=== PATIENT | female | born 1960 | race Caucasian/White ===

== ENCOUNTER 2017-12-27 14:19 | Inpatient (IN) | payer BC, OTHER ==
[~2017-12-27 14:19] MED LIST: ISOVUE-370 76%-LOCM 1 ML ONE
[2017-12-27 14:33] LABS: #Basophils 0.1 thou/uL (0.0-0.2); #Eosinphils 0.1 thou/uL (0.0-0.7); #Lymphocytes 2.1 thou/uL (1.20-3.40); #Monocytes 0.4 thou/uL (0.11-0.59); #Neutrophils 6.8 thou/uL (1.40-6.50); %Basophils 1.1 % (0.0-1.0); %Eosinophils 0.8 % (0.0-10.0); %Lymphocytes 21.9 % (21.0-51.0); %Neutrophils 72.1 % (42.0-75.0); Hemoglobin 14.5 g/dL (12.0-16.0); Mean Corpuscular HGB CONC 35.6 g/dL (32.0-36.0); Mean Corpuscular Hemoglobin 32.9 pg (27.0-31.0); Mean Corpuscular Volume 92.4 fL (78.0-98.0); Mean Platelet Volume 7.6 fL (7.4-10.4); Platelet Count 207 thou/uL (130-400); RBC Distribution Width 11.3 % (11.5-14.5); Red Blood Cell (RBC) Count 4.41 mill/uL (4.20-5.40); White Blood Cell (WBC) Count 9.5 thou/uL (4.8-10.8)
[2017-12-27 14:39] LABS: PTT 27.3 SEC (22.9-36.1); Prothrombin Time 12.9 SEC (12.0-14.7)
[2017-12-27 14:47] LABS: ALT (SGPT) 14 U/L (8-55); AST (SGOT) 16 U/L (5-34); Albumin 4.2 g/dL (3.5-5.0); Alkaline Phosphatase 83 U/L (40-150); Anion Gap 14 mmol/L (10-20); BUN (Urea Nitrogen) 10 mg/dL (9.8-20.1); Bilirubin, Total 0.5 mg/dL (0.2-1.2); Calc. Creatinine Clearance 0 mL/min (70-130); Calcium 9.7 mg/dL (7.8-10.44); Carbon Dioxide 22 mmol/L (22-29); Chloride 106 mmol/L (98-107); Estimated GFR-MDRD 79; Glucose 104 mg/dL (70-105); Potassium 4.1 mmol/L (3.5-5.1); Protein, Total 7.2 g/dL (6.0-8.3); Sodium 138 mmol/L (136-145)
[2017-12-27 14:52] LABS: CKMB 1.4 ng/mL (0-6.6); Troponin I 0.015 ng/mL (< 0.028)
--- NOTE | 2017-12-27 14:59 | CT ---
NONCONTRAST HEAD CT: Date: 12/27/17 HISTORY: Slurred speech with weakness. Status post fall. Last known time of normal presentation is unknown. FINDINGS: Limited evaluation of the skull base due to beam attenuation artifact. No parenchymal hemorrhage or e xtra-axial hematoma. No midline shift. Basilar cisterns are patent. Brain volume is age-appropriate. Cortical buck-white matter differentiation is preserved. Ventricles and sulci are patent and symmetri c. Hypoattenuation involving the right subinsular white matter may represent a remote insult given what appears to be slight volume loss. Calvarium is intact. There is adequate aeration of the sinuses and mastoid air cells. There is a remote lacunar infarct along the inferior aspect of the left lentiform nucleus. IMPRESSION: No acute intracranial process. No intracranial post-traumatic sequelae. Results of study discussed with Dr. Paniagua on 12/27/17 at 1427 hours. CODE CR. POS: [facility]
--- NOTE | 2017-12-27 15:36 | PDOC.FPRHP ---
- History of Present Illness Chief Complaint: Right sided weakness, slurred speech History of Present Illness: 57 yo F with pmh of paroxysmal a-fib, only on aspirin for management presents with acute onset rt sided vision deficit followed by left sided vision deficit and headache. This occurred at 930am this morning and pt suffered a fall when symptoms started. Pt & family reported she was acting funny and had incoherent speech followed by right sided weakness. She additionally reports pleurtic chest pain, cough and worsening of headache with coughing. CP is substernal with radiation to the left. Reports left hip pain, but is able to bear weight. Otherwise no complaints. ED Course: Aspirin - Allergies/Adverse Reactions Allergies Allergy/AdvReac Type Severity Reaction Status Date / Time Penicillins Allergy Verified 12/27/17 21:40 - History PMHx:paroxysmal a fib PSHx: hysterectomy FHx: NA Social:1ppd smoker by 20 years, social drinker, denies drugs - Review of Systems General: denies: fever/chills, weight/appetite/sleep changes Eyes: reports: vision changes. denies: eye pain Respiratory: reports: cough, shortness of breath. denies: congestion, exercise intolerance Cardiovascular: reports: chest pain. denies: palpitation, edema, orthopnea Gastrointestinal: denies: nausea, vomiting, diarrhea, constipation, abdominal pain Genitourinary: denies: incontinence, dysuria, polyuria Skin: denies: rashes, lesions Musculoskeletal: reports: pain, tenderness (left hip). denies: swelling Neurological: reports: weakness. denies: numbness, syncope Psychological: denies: anxiety, depression - Vital signs BP: 158 HR: 76 RR: 18 Tmax: 98.6 Pox: 99% on RA - Physical Exam Constitutional: NAD, awake, alert and oriented HEENT: normocephalic and atraumatic, PERRLA, EOMI, conjunctiva clear, no scleral icterus, grossly normal vision, TM's clear and intact, grossly normal hearing, MMM, oropharynx clear -Neck: C-collar in place -Chest: Mildly TTP midsternal Heart: RRR, normal S1/S2, no murmurs/rubs/gallops, pulses present, no edema Lungs: CTAB, no respiratory distress Abdomen: soft, bowel sounds present -Abdomen: Mildly ttp suprapubic -Neurological: Deficit of rt CN XI, Rt trigeminal v3 branch sensory deficit, RUE 3/5 strength throughout, RLE 2-3/5 strength throughout FMR H&P: Results - Labs Result Diagrams: 12/29/17 04:06 12/29/17 04:06 Lab results: WBC 9.5 thou/uL (4.8-10.8) 12/27/17 14:25 Hgb 14.5 g/dL (12.0-16.0) 12/27/17 14:25 Hct 40.7 % (36.0-47.0) 12/27/17 14:25 MCV 92.4 fL (78.0-98.0) 12/27/17 14:25 Plt Count 207 thou/uL (130-400) 12/27/17 14:25 Neutrophils % 72.1 % (42.0-75.0) 12/27/17 14:25 Sodium 138 mmol/L (136-145) 12/27/17 14:25 Potassium 4.1 mmol/L (3.5-5.1) 12/27/17 14:25 Chloride 106 mmol/L (98-107) 12/27/17 14:25 Carbon Dioxide 22 mmol/L (22-29) 12/27/17 14:25 BUN 10 mg/dL (9.8-20.1) 12/27/17 14:25 Creatinine 0.76 mg/dL (0.6-1.1) 12/27/17 14:25 Glucose 104 mg/dL (70-105) 12/27/17 14:25 Calcium 9.7 mg/dL (7.8-10.44) 12/27/17 14:25 Total Bilirubin 0.5 mg/dL (0.2-1.2) 12/27/17 14:25 AST 16 U/L (5-34) 12/27/17 14:25 ALT 14 U/L (8-55) 12/27/17 14:25 Alkaline Phosphatase 83 U/L (40-150) 12/27/17 14:25 CK-MB (CK-2) 1.4 ng/mL (0-6.6) 12/27/17 14:25 Serum Total Protein 7.2 g/dL (6.0-8.3) 12/27/17 14:25 Albumin 4.2 g/dL (3.5-5.0) 12/27/17 14:25 - Radiology Interpretation CT scan - head Status: report reviewed by me (NAD CTA head showed possible aneurysm of left ICA vs infundibulum, non-emergent f/u recommended) FMR H&P: A/P - Problem List (1) CVA (cerebral vascular accident) Status: Ruled-out Code(s): I63.9 - CEREBRAL INFARCTION, UNSPECIFIED (2) Tobacco abuse Status: Acute Code(s): Z72.0 - TOBACCO USE (3) Paroxysmal A-fib Status: Acute Code(s): I48.0 - PAROXYSMAL ATRIAL FIBRILLATION (4) Right sided weakness Status: Acute Code(s): R53.1 - WEAKNESS - Plan TIA VS CVA vs complex migraine - Admit stroke/tele, neuro checks q4hrs - h/o paroxysmal a-fib possibility of embolic disease - CTA: Infundibulum vs aneurysm involving distal L internal carotid, 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 Nonemergent conventional angiogram can be performed. No evidence of vascular occlusion at level of [place] - Neuro checks q4hr - ASA given in ED - Anticoagulation w/in 24 hours - High intensity statin, AM FLP - Consulted PT/OT/speech - Allow for permissive HTN to protect penumbra - PRN meds for BP >220/110 - AM echo - Consult neuro - NS@100 - 50 Benadryl w/ reglan for migraine therapy Chest pain, atypical - Trend troponins, neg x2 - Protonix for epigastric pain Paroxysmal a-fib - Once hemorrhagic stroke r/o will anticoagulate - Rate control as indicated Tobacco abuse - Web Development Instructor on cessation PPX: lovenox and protonix for DVT and GI ppx respectively Code status: FULL PCP [facility] Disposition/LOS: Stable, >/= 2 days FMR H&P: Upper Level - Pertinent history 57 yo F w/ PMH of paroxysmal a-fib, only on aspirin for managment presents with acute onset rt sided vision deficit followed byt left sided vision deficit and headache. This originally occurred at approx 930 am this morning and pt suffered a fall when symptoms started. Per pt and pts son her reported that she was acting funny and had incoherent speech followed by rt sided weakness. She additionally reports cp, pleuritic type cp, cough and worsening of headahce with coughing. CP is substernal with radiation to the left. Reports left hip pain, but is able to bear weight. Otherwise no complaints. ROS: 10 point ROS negative except for those listed above. - Pertinent findings PE: Head: NCAT NECK: C-collar in place EENT: PERRLA, EOMI, no uvular deviation, MMM, oropharynx clear Chest: Mildly TTP midsternal CV: RRR, No MRG Respiratory: CTA-b/l Abdomen: Mildly ttp suprapubic, no rebound or guarding NEURO: Deficit of rt CN XI, Rt trigeminal v3 branch sensory deficit, RUE 3/5 strength throughout, RLE 2-3/5 strength throughout - Plan Date/Time: 12/27/17 2437 I, Vitaly Townsend DO, have evaluated this patient and agree with findings/ plan as outlined by clinical nursing intern resident. Pertinent changes/additions are listed here. 1) TIA VS CVA vs complex migraine: - admit stroke/tele, neuro checks q4hrs - given h/o paroxysmal a-fib possibility of embolic disease, CTA pending - neuro checks q4hr - ASA given in ED - will need anticoagulation w/in 24 hours - high intensity statin, am FLP - consult pt, ot , speech - will allow for permissive htn to protect penumbra - PRN meds for BP >220/110 - AM echo - consult neuro - NS @ 100, 50 benadryl w/ reglan for migraine therapy 2) Paroxysmal a-fib - once hemorrhagic stroke r/o will anticoagulate - rate control as indicated 3) Tobacco abuse: - rehabilitation services counselor on cessation 4) PPX: lovenox and protonix for DVT and GI ppx respectively 5) Code status: - Pt wishes to be full code 6) Chest pain, atypical: trend troponins, protonix for epigastric pain Attending Addendum - Attending Addendum Date/Time: 12/27/17 [id number] I personally evaluated the patient and discussed the management with Dr. Scott and Dr. Townsend I agree with the History, Examination, Assessment and Plan documented above with any addition or exceptions noted below. 57 yo female with p A fib presents with headache, vision changes, and speech difficulty. Patient currently with resolution of symptoms except for headache and mild blurry vision. CT Head negative for acute. NSR on telemetry and EKG. ASA provided. Will admit for monitoring. Serial exams. MRI in AM. Will treat headache. Suspicion for complex migraine with aura. Patient reports a remote past history of migraines. Possible carotid aneurym. Will discuss workup with vascular. [place]
[2017-12-27] MEDS ORDERED: Aspirin 300 MG Suppository ONE (15:39)
--- NOTE | 2017-12-27 15:56 | RAD ---
CHEST TWO VIEWS: History: Dyspnea. Comparison: 02-06-14 FINDINGS: Cardiac silhouette is magnified by projection. Pulmonary vasculature is unremarkable. Mediastinum is midline. Retrocardiac densities likely related to a hiatal hernia. No lobar consolidation or evidence of pneumothorax. personnel monitor leads overlie the chest. IMPRESSION: No active cardiopulmonary abnormalities are demonstrated. POS: [facility]
--- NOTE | 2017-12-27 16:03 | CT ---
CT ANGIOGRAM OF THE HEAD CT ANGIOGRAM OF THE NECK 12/27/17 HISTORY: Slurred speech. Weakness. Status post fall. COMPARISON: None. TECHNIQUE: CT angiogram of the neck is performed in the axial plane. Two dimensional reformatted images are subm itted for interpretation. FINDINGS: POSTCONTRAST HEAD CT: Adequate enhancement of the brain parenchyma. Cortical buck-white matter differentiation is preserved . There is symmetric attenuation of the optic nerves and ocular rectus muscles. Retrobulbar fat is pres erved. Appropriate positioning in both ocular lenses. Adequate aeration of the sinuses and mastoid ai r cells. Aerodigestive tract is patent. No mucosal abnormality. No obvious masses in the oral cavity. Evaluati on is markedly limited by dental amalgam artifact. Midline fatty raphae of the tongue is preserved. L imited evaluation of the submandibular glands and parotid glands due to beam attenuation artifact fro m the patient's earrings. Grossly, no abnormality. Thyroid gland is unremarkable. Symmetric attenuation of the sternocleidomastoid muscles. Nonspecific enlargement of the left level II lymph node measuring 1.4 x 1.0 cm. There is effacement of the left piriform sinus. The findings may represent benign apposition of the m [place]. Nonemergent visualization can be performed. There are varying degrees of central canal stenosis and foraminal narrowing on the basis of degenerat antoinette change. Upper mediastinum and lung apices are unremarkable. CT ANGIOGRAM: The aortic arch has appropriate enhancement and luminal diameter. RIGHT CAROTID: The origin of the right carotid artery has appropriate enhancement and luminal diameter. The right co mmon carotid artery, carotid bifurcation, and internal carotid artery have appropriate enhancement an d luminal diameter. LEFT CAROTID: The origin of the left carotid artery has appropriate enhancement and luminal diameter. The left comm on carotid artery, carotid bifurcation, and internal carotid artery have appropriate enhancement and luminal diameter. Both vertebral arteries are patent throughout their course in the neck. Subclavian arteries are symme tric and patent. CT ANGIOGRAM OF THE HEAD: The distal cervical and intracranial internal carotid arteries have appropriate enhancement and lumin al diameter. There is a focal 2 to 3 mm area of enhancement along the distal aspect of the left inter nal carotid artery which may represent a PCOM artery aneurysm versus infundibulum. Evaluation is limi krishna and incomplete. There is symmetric enhancement of the A1 and M1 segments as well as the proximal A2 segments and proximal MCA branches. POSTERIOR CIRCULATION: Codominant vertebral arteries. Both PICA artery origins are unremarkable. Both vertebral arteries sup ply a normal appearing basilar artery. No significant stenosis. The left and right P1 segments have s ymmetric enhancement and luminal diameter. IMPRESSION: 1. No evidence to suggest vascular occlusion or high grade narrowing at the level of [place]. 2. No evidence of significant stenosis of the carotid arteries based upon NASCET criteria. 3. Probable infundibulum versus aneurysm involving the distal left internal carotid artery which may represent a PCOM aneurysm or infundibulum. Nonemergent conventional angiogram can be performed. 4. Results of the study discussed with Dr. Paniagua 12/27/17 at 2:49 p.m. Marialuisa MARSHALL POS: [facility]
--- NOTE | 2017-12-27 16:56 | CT ---
CT CERVICAL SPINE: Date: 12/27/17 HISTORY: Status post fall. Evaluate for cervical spine injury. COMPARISON: None. TECHNIQUE: CT of the cervical spine is performed after CT angiogram of head and neck performed. Reformatted imag es are submitted for interpretation. FINDINGS: There is no craniocervical dissociation. Lateral masses of C1 and C2, as well as the facets, have smiley ropriate articulation. There is mild hypertrophy of the posterior elements. No spondylolisthesis or s pondylolysis. No malalignment on the sagittal reformatted images. There is no prevertebral soft tissue swelling. No epidural hematoma. Varying degrees of central canal stenosis and foraminal narrowing on the basis of degenerative change . Cervical spine vertebral body height is maintained. There is no fracture. IMPRESSION: No cervical spine fracture. POS: [facility]
[2017-12-27] MEDS ORDERED: Ondansetron HCl/PF 4 MG/2 ML Vial IVP PRN (17:50)
[2017-12-27] MEDS ORDERED: Ondansetron ODT 4 MG TAB SL PRN (17:50)
[2017-12-27 18:00] VITALS: BMI 23.9
[2017-12-27] MEDS ORDERED: diphenhydrAMINE 50 MG/ML VIAL IVP SCH (18:02)
[2017-12-27] MEDS ORDERED: Metoclopramide HCl 10 MG/2 ML VIAL IVP SCH (18:02)
[2017-12-27] MEDS ORDERED: Ondansetron ODT 4 MG TAB PO PRN (18:02)
[2017-12-27] MEDS ORDERED: Ketorolac Tromethamine 30 MG/ML VIAL IVP SCH (18:02)
[2017-12-27 19:04] LABS: Troponin I 0.011 ng/mL (< 0.028)
[2017-12-27] MEDS: Sodium Chloride 0.9% 1,000 ML IV SCH (20:15)
[2017-12-27] MEDS: Pantoprazole 40 MG VIAL IVP SCH (20:44)
[2017-12-27 21:29] LABS: Troponin I 0.013 ng/mL (< 0.028)
[2017-12-28] MEDS ORDERED: Acetaminophen 500 MG TAB PO SCH (01:00)
[2017-12-28] MEDS ORDERED: Nitroglycerin 0.4 MG TAB (25 Tab Bottle) ONE (03:02)
[2017-12-28 03:36] LABS: #Eosinphils 0.1 thou/uL (0.0-0.7); #Lymphocytes 3.2 thou/uL (1.20-3.40); #Monocytes 0.4 thou/uL (0.11-0.59); #Neutrophils 4.5 thou/uL (1.40-6.50); %Basophils 0.6 % (0.0-1.0); %Eosinophils 1.6 % (0.0-10.0); %Lymphocytes 38.4 % (21.0-51.0); %Monocytes 4.6 % (0.0-10.0); %Neutrophils 54.9 % (42.0-75.0); Hemoglobin 12.8 g/dL (12.0-16.0); Mean Corpuscular HGB CONC 34.8 g/dL (32.0-36.0); Mean Corpuscular Hemoglobin 32.6 pg (27.0-31.0); Mean Corpuscular Volume 93.6 fL (78.0-98.0); Mean Platelet Volume 7.5 fL (7.4-10.4); Platelet Count 180 thou/uL (130-400); RBC Distribution Width 11.5 % (11.5-14.5); Red Blood Cell (RBC) Count 3.94 mill/uL (4.20-5.40); White Blood Cell (WBC) Count 8.2 thou/uL (4.8-10.8)
--- NOTE | 2017-12-28 03:55 | HP-2 ---
DATE OF SERVICE: 12/27/2017 TIME: 15:30 p.m. LOCATION: [facility] in [place], [place]. CODE STATUS: FULL. PRIMARY CARE PHYSICIAN: Dr. Mandujano. ATTENDING PHYSICIAN: Dr. Lyndsey Haile. RESIDENT PHYSICIAN: Dr. Vitaly Townsend. HISTORIAN: Patient. SPECIALIST: Neurology. CHIEF COMPLAINT: Right-sided weakness, slurred speech, temporary loss of vision and headache. HISTORY OF PRESENT ILLNESS: Patient is a 57-year-old female with a history of paroxysmal atrial fibr illation that she only takes aspirin for. She initially presented to the ED with a chief complaint o f right-sided weakness, temporary right eye blindness, which subsequently migrated to the left and th is was followed by severe bitemporal headache. The patient also reports a distant history of similar , but less severe symptoms on Tuesday. Prior to arrival, the patient states that she fell after early onset of symptoms. Additionally, she reports some substernal chest pain with radiation to the left arm as well as pleuritic-type chest pain and occasional dry cough. Otherwise, she currently denies v ision loss. She does not endorse a persistent right-sided weakness, who reports that her rep orted slurred speech and altered faces. Otherwise, she has no other complaints. In the ER, the patient was given aspirin and a CT of the head was done, which showed no acute disease . Subsequently, a CT angiogram of the head was performed, which showed a possible left internal vivas tid aneurysm versus infundibulum. Recommended nonemergent CT angiogram for further evaluation. Negra ent reported vision loss of the right eye followed by the left eye and subsequent severe headache aft er these symptoms occur. PAST MEDICAL HISTORY: Paroxysmal atrial fibrillation. PAST SURGICAL HISTORY: Hysterectomy. ALLERGIES: PENICILLIN. MEDICATION: Aspirin 81 mg per day. FAMILY HISTORY: Unknown. SOCIAL HISTORY: Tobacco: The patient is a half-pack per day smoker for approximately 30 years. Soc ial drinker. Denies drug use. REVIEW OF SYSTEMS: General: The patient denies fever or chills. No night sweats or fatigue. Eyes: The patient reports changes in vision. Denies eye pain. ENT: The patient denies nasal congestio n, rhinorrhea, or sore throat. Respiratory: The patient complains of cough and pain with deep inspi ration. Otherwise, denies shortness of breath or exercise intolerance. Cardiovascular: The patient reports chest pain in substernal with radiation to the left. Denies palpitations, edema, paroxysmal nocturnal dyspnea, or orthopnea. Gastrointestinal: Denies nausea, vomiting, diarrhea, constipation , abdominal pain, or GI bleeding. Genitourinary: Denies incontinence, dysuria, polyuria, or dischar ge. Skin: Denies rashes or lesions. Musculoskeletal: Denies pain, tenderness, stiffness, or swell ing. Neurologic: The patient reports weakness on the right upper extremity and right lower extremit y. Denies numbness. Denies syncope and denies seizure. Psychiatric: The patient denies any acute stressors at home and currently denies any symptoms of anxiety or depression. PHYSICAL EXAMINATION: VITAL SIGNS: Blood pressure 141/72, pulse 81, respiratory rate 18. T-max 98.69, pulse ox 97% on gracia m air, current weight 70 kilograms. GENERAL: The patient is alert and oriented x3, mildly distress, well-developed and appropriately int eractive. EYES: Pupils are equal, round, reactive to light with accommodation. Extraocular muscles are intact . Conjunctivae are within normal limits. ENT: Nasal mucosa is within normal limits. Oropharynx within normal limits. NECK: Patient has C-collar in place at time of exam. CARDIOVASCULAR: Regular rate and rhythm. No murmurs, rubs, or gallops. Radial pulses 2+. Pedal pu lse 2+. RESPIRATORY: Normal effort. No retractions. LUNGS: Clear to auscultation bilaterally. SKIN: Warm and dry. No cyanosis or lesions. ABDOMEN: Soft, nontender. Normoactive bowel sounds in all 4 quadrants. No masses, distention, or o rganomegaly. No CVA tenderness. EXTREMITIES: No clubbing, cyanosis, or edema. MUSCULOSKELETAL: Structure is within normal limits. Tone within normal limits. NEUROLOGIC: There is a right-sided deficit of the V3 branch of the trigeminal nerve on the right maximiliano e, in addition to right cranial nerve 11 deficit. Additionally, the patient's upper extremity streng th on the right side is approximately 3/5 and lower extremity strength is approximately 2-3/5 on the right. Current GCS is 15. Deep tendon reflexes are within normal limits on the lower extremity. PSYCHIATRIC: The patient is tearful and upset. LABORATORY DATA: BNP and CBC are within normal limits. Urinalysis was within normal limits. EKG sh owed normal sinus rhythm with a rate of 81. IMAGIN. A noncontrast CT of the head showed no acute disease. 2. CT angiogram of the head showed a left internal carotid aneurysm versus infundibulum, nonemergent , repeat MR angiogram of the head was recommended for further evaluation. ASSESSMENT AND PLAN: 1. Transient ischemic attack versus cerebrovascular accident versus complex migraine. We will admit inpatient stroke. Stroke team to be consulted. Neurology consult in a.m. 2. We will obtain echocardiogram in a.m., in addition to fasting lipid panel. The patient will be s tarted on Lovenox as well as aspirin for antiplatelet and antithrombin therapy. Given the patient's current headache and presenting symptoms, a complex migraine cannot be ruled out. We will treat for the possibility of migraine with Toradol in addition to IV fluids and normal saline 100 mL per hour a nd Benadryl and Reglan. 3. Neurology consulted, appreciate recommendations. 4. Paroxysmal atrial fibrillation. We will order echocardiogram for the a.m. The patient is to be anticoagulated with Lovenox. A CT noncontrast was negative for acute hemorrhagic stroke. 5. We will likely need long-term anticoagulation if the source of this weakness is in fact embolic d isease. 6. Tobacco abuse, counseled on cessation. 7. Prophylaxis. Lovenox and Protonix for deep vein thrombosis and gastrointestinal prophylaxis resp ectively. CODE STATUS: The patient wishes to be FULL CODE, it was discussed with patient at bedside. THIS IS A DICTATED H&P, WHICH WILL BE TEMPORARY [employer] ACCESS IS CURRENTLY DOWN FOR THE FULL LIS T OF LABORATORY RESULTS, EKG AND CHEST IMAGING FINDINGS WELL A MORE DETAILED ASSESSMENT AND ADDI N, PLEASE SEE THE ELECTRONIC H&P WHICH WILL BE COMPLETED FOLLOWING ABILITY TO GET ACCESS TO [employer].
[2017-12-28 03:59] LABS: Anion Gap 12 mmol/L (10-20); BUN (Urea Nitrogen) 12 mg/dL (9.8-20.1); Calc. Creatinine Clearance 91 mL/min (70-130); Calcium 8.7 mg/dL (7.8-10.44); Carbon Dioxide 21 mmol/L (22-29); Cardiac Risk 2.6 (Less than 4.5); Chloride 110 mmol/L (98-107); Cholesterol 155 mg/dl (< 200 Desired); Estimated GFR-MDRD 81; Glucose 90 mg/dL (70-105); HDL Cholesterol 60 mg/dL (>60 Neg Risk); LDL Cholesterol, Calculated 79 mg/dL; Potassium 4.1 mmol/L (3.5-5.1); Sodium 139 mmol/L (136-145); Triglycerides 80 mg/dL (Less than 150)
[2017-12-28 04:03] LABS: Troponin I Less than 0.010 ng/mL (< 0.028)
--- NOTE | 2017-12-28 05:07 | PDOC.FM ---
- Subjective Subjective: 57 yo F with pmh of paroxysmal a-fib, only on aspirin for management presents with acute onset rt sided vision deficit followed by left sided vision deficit and headache and right sided weakness. No concerns or complaints. No overnight events. Voiding. Reports improvement in right sided weakness, speech, JACOBO, SOB and chest pain. Denies vision changes, palpitations, lightheadedness. Report anxiety over the findings on CT. Overnight she had multiple complaints of JACOBO, SOB, and leg cramping but these have resolved. - Objective MAR Reviewed: Yes Vital Signs & Weight: Vital Signs (12 hours) Temp Pulse Resp BP Pulse Ox 12/28/17 04:00 97.9 F 61 18 118/63 99 12/28/17 00:00 98.6 F 62 18 110/61 97 12/27/17 20:00 98.4 F 89 18 106/66 96 12/27/17 18:11 98.8 F 84 20 127/96 H 99 Result Diagrams: 12/28/17 03:27 12/28/17 03:27 Phys Exam - Physical Examination Constitutional: NAD Respiratory: no wheezing, clear to auscultation bilateral Cardiovascular: RRR, no significant murmur Gastrointestinal: soft, positive bowel sounds rebound tenderness in RLQ Musculoskeletal: no edema, pulses present CN2-12 intact, decreased sensation of right face and UE, 3-4/5 R weakness able to perform rapid alternating movements, nml finger-nose Psychiatric: normal affect, A&O x 3 Skin: cap refill <2 seconds Dx/Plan (1) CVA (cerebral vascular accident) Code(s): I63.9 - CEREBRAL INFARCTION, UNSPECIFIED Status: Suspected (2) Tobacco abuse Code(s): Z72.0 - TOBACCO USE Status: Acute (3) Paroxysmal A-fib Code(s): I48.0 - PAROXYSMAL ATRIAL FIBRILLATION Status: Acute (4) Right sided weakness Code(s): R53.1 - WEAKNESS Status: Acute - Plan Plan: TIA VS CVA vs complex migraine - h/o paroxysmal a-fib possibility of embolic disease - CTA: Infundibulum vs aneurysm involving distal L internal carotid, 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 Nonemergent conventional angiogram can be performed. No evidence of vascular occlusion at level of [place] - Neuro checks q4hr - ASA given in ED - Consulted PT/OT/speech - Allow for permissive HTN to protect penumbra - PRN meds for BP >220/110 - Echo & MRI today - Consult neuro - NS@100 - 50 Benadryl w/ reglan for migraine therapy - Start Atorvastain 40mg - Plan to start Eliquis 5mg BID for afib PCOM aneurysm vs infundibulum - Noted on CT on 12/27, radiology recommended nonemergent conventional angiogram - F/u with CV surg outpatient Chest pain, atypical - Troponins neg x4 - Protonix for epigastric pain Paroxysmal a-fib - Rate control as indicated - Plan to start Eliquis 5mg BID for afib Tobacco abuse - Planer Operator on cessation PPX: lovenox and protonix for DVT and GI ppx respectively Code status: FULL PCP [facility] Disposition/LOS:
[2017-12-28] MEDS: Sodium Chloride 0.9% 1,000 ML IV SCH (06:16)
[2017-12-28] MEDS ORDERED: Ketorolac Tromethamine 30 MG/ML VIAL IVP PRN (07:52)
[2017-12-28] MEDS: diphenhydrAMINE 50 MG/ML VIAL IVP PRN ×3 (08:46→19:59)
[2017-12-28] MEDS: Metoclopramide HCl 10 MG/2 ML VIAL IVP PRN ×3 (08:47→19:58)
[2017-12-28] MEDS: Enoxaparin Sodium 40 MG/0.4 ML SYRINGE SC SCH (09:30)
--- NOTE | 2017-12-28 12:29 | ADD-PRG ---
DATE OF SERVICE: 12/28/2017 This is an addendum to the note of Dr. Jo Scott. is a 57-year-old female patient admitted yesterday with TIA type symptoms including right -sided weakness, slurred speech and a temporary loss of vision. She presented to the ER too late for TPA therapy. She has subsequently undergone a CTA of the head and neck which revealed an infundibul um versus aneurysm involving the distal left internal carotid artery, which may represent a PCOM aneu rysm or infundibulum. It was recommended that she undergo nonemergent conventional arteriogram. We will also discuss this with CV Surgery. In the event, the rest of her CTA was negative for any evide nce of thrombosis or clot. She is to undergo an echocardiogram later today. We have started her on aspirin and statin. She also has a history of atrial fibrillation, though now she is in normal sinus rhythm. This was likely a TIA/CVA related to atrial fibrillation and she will be a candidate for an ticoagulation. Further treatment depends on results of echo and further evaluation and consultation with Neurology.
--- NOTE | 2017-12-28 16:31 | MRI ---
BRAIN MRI WITHOUT IV CONTRAST 12/28/17 HISTORY: 57-year-old female with history of acute right sided weakness and speech changes. There is no evidence for acute infarct. There is no focal mass or midline shift. No intra or extra-ax ial hemorrhage. Normal expected flow voids are present. Minute ethmoid sinus mucosal disease. IMPRESSION: Unremarkable brain MRI. No evidence for acute infarct or other significant acute process. POS: [facility]
[2017-12-28] MEDS ORDERED: Atorvastatin Calcium 40 MG TAB PO SCH (21:00)
[2017-12-28] MEDS: Pantoprazole 40 MG VIAL IVP SCH (21:04)
--- NOTE | 2017-12-29 02:17 | CON ---
DATE OF CONSULTATION: 12/28/2017 REFERRING PROVIDER: Dr. Jo Scott. REASON FOR CONSULTATION: Right-sided weakness, headache. HISTORY OF PRESENT ILLNESS: is a pleasant 57-year-old female who has been conc erning for evaluation of right-sided weakness and severe headache. The patient reports that yesterda y she had a sudden onset of numbness, tingling, and weakness on her right upper and right lower extre mity. She also had a blurry vision in the right eye, which then quickly transferred over to the left eye after followed by a severe throbbing headache in bitemporal region. This was a 10/10 in intensi ty. She had noted numbness and tingling in the right side of the face as well and noted floaters in the corner of her left eye. She had nausea, light sensitivity, noise sensitivity, and difficulty wit h getting her words out, this prompted her to present to the [facility]. She reports that her symptoms are slowly improving and she is almost back to her baseline. She states that her h eadaches continued on for several hours, which is now slowly have been improving. She reports that s he has a history of migraines and they used to occur at least once a week; however, over the past few months, they have become less frequent. PAST MEDICAL HISTORY: Significant for paroxysmal atrial fibrillation, history of migraine headaches. PAST SURGICAL HISTORY: Significant for hysterectomy. CURRENT MEDICATIONS: Please review MAR. ALLERGIES: Include PENICILLIN. FAMILY HISTORY: Noncontributory. SOCIAL HISTORY: She smokes half pack of cigarettes on a daily basis. She drinks alcohol on social o ccasions. She denies illicit drug use. She is . REVIEW OF SYSTEMS: As mentioned above in the HPI, otherwise negative. PHYSICAL EXAMINATION: VITAL SIGNS: Blood pressure of 110/67, pulse of 70, temperature of 97.9, respirations of 18, O2 sats of 95% on room air. GENERAL: A well-developed, well-nourished female, in no apparent distress. RESPIRATORY: Clear to auscultation bilaterally. CARDIOVASCULAR: Regular rate and rhythm. NEUROLOGIC: Mental status: The patient is awake, alert, oriented x3. Speech and language: Fluent speech. Cranial nerves: Pupils are 3 mm and reactive. Visual [place] are intact. Extraocular muscl es are intact. No nystagmus noted. Face is symmetric. Tongue and uvula midline. Motor exam showed normal tone and bulk with a 5/5 strength in both upper and lower extremities. Sensory: Sensation i s intact and symmetric. Deep tendon reflexes 2+ of flexion with upper and lower extremities. Babins ki: Plantar responses flexion bilaterally. Coordination intact to [id number]-csiesw, finger tappin g bilaterally. LABORATORY DATA: Reviewed, which included CBC, coag panel, CMP, which is all essentially normal. Li pid profile showed total cholesterol 155, LDL of 79, HDL of 60, and triglycerides of 80, otherwise un remarkable. IMAGING STUDIES: MRI brain without contrast was reviewed, which showed no acute intracranial abnorma lity. CT angiogram of the head and neck were reviewed, which showed no acute intracranial or extracr anial vascular abnormality. Echocardiogram results were reviewed, which showed EF of 60% to 65% with out any wall motion abnormality or intracardiac mass or thrombus. IMPRESSION: 1. Transient episode of right-sided weakness and blurry vision, could be secondary to complicated mi graine versus transient ischemic attack. 2. Chronic atrial fibrillation. 3. Migraine headache without aura. PLAN: is a pleasant 57-year-old female who presented with an acute onset of ri ght-sided numbness and weakness followed by severe throbbing headache. Based on the description of yudith ny, this is likely secondary to complicated migraine, given that she has a history of atrial fi brillation underlying TIA also be excluded. At this time, I would recommend to continuing her on asp irin 81 mg daily for secondary stroke prevention. I have advised her that given that she had complic ated migraine, she would benefit from having a preventive therapy on board as complicated migraine ca n increase the risk for having a stroke. Patient is okay to be discharged to home and she can follow up with our clinic in 2-3 months.
[2017-12-29 05:00] LABS: #Eosinphils 0.2 thou/uL (0.0-0.7); #Lymphocytes 2.9 thou/uL (1.20-3.40); #Monocytes 0.3 thou/uL (0.11-0.59); %Basophils 0.4 % (0.0-1.0); %Eosinophils 2.3 % (0.0-10.0); %Neutrophils 54.2 % (42.0-75.0); Hemoglobin 12.5 g/dL (12.0-16.0); Mean Corpuscular HGB CONC 34.7 g/dL (32.0-36.0); Mean Corpuscular Hemoglobin 32.4 pg (27.0-31.0); Mean Corpuscular Volume 93.5 fL (78.0-98.0); Mean Platelet Volume 8.3 fL (7.4-10.4); Platelet Count 153 thou/uL (130-400); RBC Distribution Width 11.4 % (11.5-14.5); Red Blood Cell (RBC) Count 3.85 mill/uL (4.20-5.40); White Blood Cell (WBC) Count 7.4 thou/uL (4.8-10.8)
[2017-12-29 05:17] LABS: Anion Gap 11 mmol/L (10-20); BUN (Urea Nitrogen) 14 mg/dL (9.8-20.1); Calc. Creatinine Clearance 78 mL/min (70-130); Calcium 8.9 mg/dL (7.8-10.44); Carbon Dioxide 22 mmol/L (22-29); Chloride 110 mmol/L (98-107); Estimated GFR-MDRD 68; Glucose 92 mg/dL (70-105); Sodium 139 mmol/L (136-145)
--- NOTE | 2017-12-29 05:21 | PDOC.FM ---
- Subjective Subjective: No events overnight. No questions or concerns. Reports weakness has improved. JACOBO starting on left occipital area. Denies nausea, vision changes, and dizziness. - Objective MAR Reviewed: Yes Vital Signs & Weight: Vital Signs (12 hours) Temp Pulse Resp BP Pulse Ox 12/29/17 03:43 98.0 F 64 16 128/68 94 L 12/28/17 19:30 99.2 F 73 15 115/65 95 I&O: 12/27/17 12/28/17 12/29/17 06:59 06:59 06:59 Intake Total 1475 880 Balance 1475 880 Result Diagrams: 12/29/17 04:06 12/29/17 04:06 Dx/Plan (1) CVA (cerebral vascular accident) Code(s): I63.9 - CEREBRAL INFARCTION, UNSPECIFIED Status: Suspected (2) Tobacco abuse Code(s): Z72.0 - TOBACCO USE Status: Acute (3) Paroxysmal A-fib Code(s): I48.0 - PAROXYSMAL ATRIAL FIBRILLATION Status: Acute (4) Right sided weakness Code(s): R53.1 - WEAKNESS Status: Acute - Plan Plan: TIA VS complex migraine - h/o paroxysmal a-fib possibility of embolic disease - CTA: Infundibulum vs aneurysm involving distal L internal carotid, 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 Nonemergent conventional angiogram can be performed. 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
[2017-12-29] MEDS: diphenhydrAMINE 50 MG/ML VIAL IVP PRN (08:26)
[2017-12-29] MEDS: Metoclopramide HCl 10 MG/2 ML VIAL IVP PRN (08:26)
[2017-12-29] MEDS: Enoxaparin Sodium 40 MG/0.4 ML SYRINGE SC SCH (08:26)
[2017-12-29] MEDS ORDERED: Topiramate 25 MG TAB PO SCH (09:00)
[2017-12-29 12:17] VITALS: TEMP 98.4
[2017-12-29 13:50] VITALS: BP 149/76
--- NOTE | 2017-12-29 15:35 | ADD-PRG ---
ADDENDUM DATE OF SERVICE: This is an addendum to the note of Dr. Jo Scott. looks and feels much better this m orning. She has no focal deficits. She was seen in consultation by Dr. Avery the Neurology service, who suspected complex migraines. We will go ahead and put her on migraine prophylaxis with Topamax. Given the possibility of transient ischemic attack, we have gone ahead and placed her on low dose as pirin and atorvastatin. Given her prior history of atrial fibrillation, we will proceed with an even t recorder to see if there is any documentation of her atrial fibrillation. She states that it "come s and goes." Otherwise, she is stable for discharge to pursue further testing as an outpatient.
--- NOTE | 2017-12-30 04:55 | DIS-2 ---
DATE OF ADMISSION: 12/27/2017 DATE OF DISCHARGE: 12/29/2017 RESIDENT: Jo Scott, PGY1. ADMITTING ATTENDING: Jamison Villela MD DISCHARGE ATTENDING: Jamison Villela MD CONSULTATIONS: Neurology. PROCEDURES: 1. Brain CT, no acute abnormalities. 2. CTA showed probable infundibulum versus aneurysm involving the distal left internal carotid artery may represent posterior communicating artery aneurysm or infundibulum. 3. Echo 60-65% ejection fraction, mitral tricuspid and pulmonic regurgitation. 4. MRI, no acute abnormalities. PRIMARY DIAGNOSES: 1. Complicated migraine. 2. Suspected transient ischemic attack. SECONDARY DIAGNOSES: 1. Tobacco abuse 2. Paroxysmal atrial fibrillation. DISCHARGE MEDICATIONS: 1. Aspirin 81 mg daily. 2. Atorvastatin 40 mg at bedtime. 3. Topiramate 25 mg b.i.d. DISCONTINUED MEDICATIONS: None. HISTORY OF PRESENT ILLNESS AND HOSPITAL COURSE: is a 57-year-old female with a past medical history notable for paroxysmal atrial fibrillation, on aspirin for management, presented with acute onset of vision changes and headache at 9:30, the morning of admission. She later reported some speech finding difficulties and right sided weakness. At presentation, she was not a candidate for tPA because she was outside the time window. Her CTA showed no acute abnormalities. Throughout admission she had a severe migraine treated with Benadryl, Toradol, and Reglan providing relief. Her right sided weakness. resolved through hospital course. There were no episodes of atrial fibrillation during monitoring. She was discharged on Topamax for migraine prophylaxis, neurology thought symptoms were most consistent with complex migraine. Because TIA could not be ruled out, we risk stratified with starting her on atorvastatin 40, encouraged smoking cessation and controlled her blood pressure. She was discharged with a Holter monitor to evaluate for atrial fibrillation and a plan to follow up with Cardiology prior to starting Eliquis for atrial fibrillation. 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 We spoke with Neurosurgery. They felt that this was very small and does not warrant an urgent outpatient followup. They recommended repeating the CTA in 6 months. DISPOSITION: Stable. DISCHARGE INSTRUCTIONS: 1. Location: Home. 2. Diet: Low sodium. 3. Activity: No restrictions. 4. Followup: Follow up with: A. PCP in [address] Javan Esteves within [address] Laly Avery within 1 month. MTDD
== END 2017-12-29 14:22 | disposition home or self-care (01) | DRG 69 ==
LOC: ERS 14:19 → 2SE 17:56
PROVIDERS: ADMIT Student in an Organized Health Care Education/Training Program; ATTEND Student in an Organized Health Care Education/Training Program
DX: G45.9 Transient cerebral ischemic attack, unspecified (principal); G43.909 Migraine, unspecified, not intractable, without status migrainosus; I48.0 Paroxysmal atrial fibrillation; F17.210 Nicotine dependence, cigarettes, uncomplicated; R47.81 Slurred speech; R53.1 Weakness; R07.89 Other chest pain; Z79.82 Long term (current) use of aspirin; Z88.0 Allergy status to penicillin; Z90.710 Acquired absence of both cervix and uterus; Z82.49 Family history of ischemic heart disease and other diseases of the circulatory system
CPT/HCPCS: 36415; 36416; 70450; 70496; 70498; 70551; 71045; 72125; 80048; 80053; 80061; 82553; 84443; 84484; 85025; 85610; 85730; 93005; 93010; 93306; C9113; G8978-GP-CK; G8979-GP-CI; G8987-GO-CK; G8988-GO-CI; G8996-GN-CJ; G8997-GN-CH; J1200; J1650; J1885; J2765

== ENCOUNTER 2020-08-27 22:05 | Emergency (ER) | payer SELFPAY ==
[2020-08-27] MEDS ORDERED: levETIRAcetam in NS 500 MG in Premix Bag 1 BAG IVPB SCH (23:00)
[2020-08-27 23:02] LABS: #Eosinphils 0.1 thou/uL (0.0-0.7); #Lymphocytes 2.3 thou/uL (1.20-3.40); #Monocytes 0.3 thou/uL (0.11-0.59); #Neutrophils 5.1 thou/uL (1.40-6.50); %Basophils 0.4 % (0.0-1.0); %Eosinophils 1.1 % (0.0-10.0); %Lymphocytes 29.6 % (21.0-51.0); Hemoglobin 13.9 g/dL (12.0-16.0); Mean Corpuscular Volume 94.2 fL (78.0-98.0); Mean Platelet Volume 7.6 fL (7.4-10.4); Platelet Count 192 thou/uL (130-400); RBC Distribution Width 11.9 % (11.5-14.5); Red Blood Cell (RBC) Count 4.34 mill/uL (4.20-5.40); White Blood Cell (WBC) Count 7.9 thou/uL (4.8-10.8)
[2020-08-27 23:24] LABS: ALT (SGPT) 15 U/L (8-55); AST (SGOT) 17 U/L (5-34); Albumin 3.8 g/dL (3.5-5.0); Alkaline Phosphatase 77 U/L (40-110); Anion Gap 12 mmol/L (10-20); BUN (Urea Nitrogen) 11 mg/dL (9.8-20.1); Bilirubin, Total 0.3 mg/dL (0.2-1.2); Calc. Creatinine Clearance 0 mL/min (70-130); Calcium 8.5 mg/dL (7.8-10.44); Carbon Dioxide 21 mmol/L (22-29); Chloride 112 mmol/L (98-107); Dilantin Less than 1.8 ug/mL (10.0-20.0); Globulin 2.8 g/dL (2.4-3.5); Glucose 87 mg/dL (70-105); Potassium 3.4 mmol/L (3.5-5.1); Protein, Total 6.6 g/dL (6.0-8.3); Sodium 142 mmol/L (136-145)
[2020-08-27 23:30] LABS: Carbamazepine-Tegretol Less than 1.9 ug/mL (4.0-12.0)
[2020-08-27 23:42] LABS: Bacteria/HPF None Seen HPF (None Seen); Bilirubin Negative (Negative); Blood, Urine 1+ (Negative); Clarity Clear (Clear); Glucose, Urine (Dipstick) Normal (Negative); Ketone, Urine Negative (Negative); Leukocyte Negative Leu/uL (Negative); Nitrite Negative (Negative); Protein, Urine (Dipstick) Negative (Neg-Trace); RBC/HPF 0-3 HPF (0-3); Specific Gravity, Urine 1.004 (1.002-1.036); Squamous Epithelial 0-3 HPF (0-3); Urobilinogen Normal mg/dL (Less than 2); WBC/HPF 0-3 HPF (0-3)
[2020-08-27 23:50] LABS: Amphetamine Not Detected (NotDetected); Barbiturates Screen Not Detected (NotDetected); Benzodiazepine Screen Not Detected (NotDetected); Cocaine Metabolite Screen Not Detected (NotDetected); Medtox Control Line Valid? VALID (VALID); Medtox Reader # READER 4; Methadone Not Detected (NotDetected); Methamphetamine Not Detected (NotDetected); Opiate Screen Not Detected (NotDetected); Oxycodone Screen Not Detected (NotDetected); Phencyclidine (PCP) Not Detected (NotDetected); THC/Cannabinoid Screen Not Detected (NotDetected); Tricyclic Screen Not Detected (NotDetected)
== END 2020-08-28 00:16 | disposition home or self-care (01) ==
LOC: ERS 22:05
DX: R56.9 Unspecified convulsions (principal); I25.2 Old myocardial infarction; G43.909 Migraine, unspecified, not intractable, without status migrainosus; F17.210 Nicotine dependence, cigarettes, uncomplicated
CPT/HCPCS: 36415; 70450; 72125; 80053; 80156; 80164; 80185; 80306; 81003; 81015; 84146; 85025; 93005; 94760; 96365; J1953

== ENCOUNTER 2020-11-04 13:46 | Outpatient (CLI) | payer OTHER | END 2020-11-04 13:47 | disposition home or self-care (01) | LOC: EEG 13:46 | PROVIDERS: ATTEND Nurse Practitioner Acute Care | DX: R56.9 Unspecified convulsions (principal) | CPT/HCPCS: 95816 ==

== ENCOUNTER 2022-01-20 03:35 | Emergency (ER) | payer BC ==
[2022-01-20] MEDS ORDERED: levETIRAcetam 500 MG/5 ML VIAL ONE (03:43)
[2022-01-20 04:17] LABS: #Eosinphils 0.1 thou/uL (0.0-0.7); #Lymphocytes 2.1 thou/uL (1.20-3.40); #Monocytes 0.3 thou/uL (0.11-0.59); #Neutrophils 3.7 thou/uL (1.40-6.50); %Basophils 0.7 % (0.0-1.0); %Eosinophils 1.1 % (0.0-10.0); %Lymphocytes 33.6 % (21.0-51.0); %Monocytes 5.5 % (0.0-10.0); %Neutrophils 59.2 % (42.0-75.0); Hemoglobin 13.6 g/dL (12.0-16.0); Mean Corpuscular HGB CONC 34.4 g/dL (32.0-36.0); Mean Corpuscular Hemoglobin 31.9 pg (27.0-31.0); Mean Corpuscular Volume 92.9 fL (78.0-98.0); Mean Platelet Volume 8.2 fL (7.4-10.4); Platelet Count 204 thou/uL (130-400); RBC Distribution Width 12.2 % (11.5-14.5); Red Blood Cell (RBC) Count 4.25 mill/uL (4.20-5.40); White Blood Cell (WBC) Count 6.2 thou/uL (4.8-10.8)
[2022-01-20 04:30] LABS: ALT (SGPT) 16 U/L (8-55); AST (SGOT) 17 U/L (5-34); Alcohol 164 mg/dL (Less than 10); Alkaline Phosphatase 87 U/L (40-110); Anion Gap 16 mmol/L (10-20); BUN (Urea Nitrogen) 17 mg/dL (9.8-20.1); Bilirubin, Total 0.4 mg/dL (0.2-1.2); Calc. Creatinine Clearance 0 mL/min (70-130); Calcium 9.3 mg/dL (7.8-10.44); Carbon Dioxide 23 mmol/L (22-29); Chloride 107 mmol/L (98-107); Estimated GFR 73; Glucose 105 mg/dL (70-105); Potassium 3.9 mmol/L (3.5-5.1); Sodium 142 mmol/L (136-145)
[2022-01-20 04:33] LABS: Carbamazepine-Tegretol Less than 1.9 ug/mL (4.0-12.0)
[2022-01-20 05:02] LABS: Bacteria/HPF None Seen HPF (None Seen); Bilirubin Negative (Negative); Blood, Urine 3+ (Negative); Clarity Clear (Clear); Glucose, Urine (Dipstick) Normal (Negative); Ketone, Urine Negative (Negative); Leukocyte Negative Leu/uL (Negative); Nitrite Negative (Negative); Protein, Urine (Dipstick) Negative (Neg-Trace); RBC/HPF 0-3 HPF (0-3); Specific Gravity, Urine 1.025 (1.002-1.036); Squamous Epithelial 0-3 HPF (0-3); Urobilinogen Normal mg/dL (Less than 2); WBC/HPF 0-3 HPF (0-3); pH, Urine 5.5 (5.0-9.0)
== END 2022-01-20 07:15 | disposition home or self-care (01) ==
LOC: ERS 03:35
DX: R56.9 Unspecified convulsions (principal); I25.2 Old myocardial infarction; F17.210 Nicotine dependence, cigarettes, uncomplicated; Z79.899 Other long term (current) drug therapy
CPT/HCPCS: 36415; 36416; 51701; 70450; 71045; 80053; 80156; 80164; 80185; 80307; 81003; 81015; 84146; 85025; 93005; 94760; 96365; J1953

== ENCOUNTER 2023-04-16 19:45 | Emergency (ER) | payer OTHER, SELFPAY ==
[2023-04-16] MEDS ORDERED: levETIRAcetam 500 MG/5 ML VIAL ONE (20:19)
[2023-04-16 20:26] LABS: #Eosinphils 0.1 thou/uL (0.0-0.7); #Monocytes 0.4 thou/uL (0.11-0.59); #Neutrophils 7.7 thou/uL (1.40-6.50); %Basophils 0.4 % (0.0-1.0); %Eosinophils 0.8 % (0.0-10.0); %Lymphocytes 16.3 % (21.0-51.0); %Monocytes 3.7 % (0.0-10.0); %Neutrophils 78.5 % (42.0-75.0); Hematocrit 40.9 % (36.0-47.0); Hemoglobin 13.7 g/dL (12.0-16.0); Mean Corpuscular HGB CONC 33.5 g/dL (32.0-36.0); Mean Corpuscular Hemoglobin 31.4 pg (27.0-31.0); Mean Corpuscular Volume 93.6 fl (78.0-98.0); Mean Platelet Volume 10.7 fL (7.4-10.4); Platelet Count 187 10x3/uL (130-400); Red Blood Cell (RBC) Count 4.37 mill/uL (4.20-5.40); White Blood Cell (WBC) Count 9.8 10x3/uL (4.8-10.8)
[2023-04-16 20:49] LABS: ALT (SGPT) 16 U/L (8-55); AST (SGOT) 14 U/L (5-34); Alkaline Phosphatase 80 U/L (40-110); Anion Gap 10 mmol/L (10-20); BUN (Urea Nitrogen) 15 mg/dL (9.8-20.1); Bilirubin, Total 0.3 mg/dL (0.2-1.2); Calc. Creatinine Clearance 0 mL/min (70-130); Calcium 9.1 mg/dL (7.8-10.44); Carbon Dioxide 24 mmol/L (22-29); Chloride 110 mmol/L (98-107); Estimated GFR 78; Glucose 94 mg/dL (70-105); Potassium 3.9 mmol/L (3.5-5.1); Sodium 140 mmol/L (136-145)
[2023-04-16 21:23] LABS: Acetaminophen Less than 10 mcg/mL (10.0-30.0); Alcohol Less than 10.0 mg/dL (Less than 10); Salicylate Less than 8.0 mg/dL (15.0-30.0)
[2023-04-16] MEDS ORDERED: Ketorolac Tromethamine 30 MG/ML VIAL ONE (23:16)
== END 2023-04-16 23:24 | disposition home or self-care (01) ==
LOC: ERS 19:45
DX: R56.9 Unspecified convulsions (principal); R52 Pain, unspecified; F17.210 Nicotine dependence, cigarettes, uncomplicated
CPT/HCPCS: 70450; 80053; 80307; 83605; 84146; 85025; 96374; 96375; J1885; J1953

== ENCOUNTER 2024-04-21 21:02 | Inpatient (IN) | payer OTHER ==
[2024-04-21 21:14] LABS: Actual Bicarbonate (HCO3a) 19.9 mEq/L (22-28); Analyzer IN Cardio ER; Base Excess (BEa) -3.4 mEq/L (-2.0 to +3.0); CO2 Tension 31.2 mmHg (35.0-45.0); Calcium, Ionized (arterial) 1.18 mmol/L (1.12-1.30); Carboxyhemoglobin (COHb) 3.5 gm% (0.0-3.0); Hematocrit-ABG 40 % (36.0-47.0); Hemoglobin (Hb) 13.7 g/dL (12.0-16.0); O2 Tension (PaO2), arterial 138.7 mmHg (> 80.0); Potassium - ABG Lab 3.52 mmol/L (3.70-5.30); pH, Arterial 7.423 (7.35-7.45)
[2024-04-21] MEDS ORDERED: Propofol 1,000 MG/100 ML VIAL IV ONE (21:16)
[2024-04-21 21:27] LABS: #Basophils 0.03 10x3/uL (0.0-0.2); %Basophils 0.3 % (0.0-1.0); %Eosinophils 0.8 % (0.0-10.0); %Lymphocytes 20.4 % (21.0-51.0); %Monocytes 4.8 % (0.0-10.0); %Neutrophils 73.4 % (42.0-75.0); Hematocrit 40.3 % (36.0-47.0); Hemoglobin 13.3 g/dL (12.0-16.0); Mean Corpuscular Hemoglobin 30.8 pg (27.0-31.0); Mean Corpuscular Volume 93.3 fL (78.0-98.0); Mean Platelet Volume 10.6 fL (7.4-10.4); Platelet Count 190 10x3/uL (130-400); RBC Distribution Width 12.1 % (11.5-14.5); Red Blood Cell (RBC) Count 4.32 mill/uL (4.20-5.40)
[2024-04-21 21:42] LABS: ALT (SGPT) 13 U/L (8-55); AST (SGOT) 16 U/L (5-34); Albumin 3.6 g/dL (3.4-4.8); Alkaline Phosphatase 77 U/L (40-110); Anion Gap 12 mmol/L (10-20); BUN (Urea Nitrogen) 12 mg/dL (9.8-20.1); Bilirubin, Total 0.5 mg/dL (0.2-1.2); Calc. Creatinine Clearance 0 mL/min (70-130); Calcium 8.8 mg/dL (7.8-10.44); Carbon Dioxide 22 mmol/L (23-31); Chloride 109 mmol/L (98-107); Estimated GFR 74; Globulin 3.2 g/dL (2.4-3.5); Glucose 85 mg/dL (80-115); Potassium 3.5 mmol/L (3.5-5.1); Protein, Total 6.8 g/dL (5.8-8.1); Sodium 139 mmol/L (136-145)
[2024-04-21 21:43] LABS: Acetaminophen Less than 10 mcg/mL (Less than 10); Alcohol Less than 10.0 mg/dL (Less than 10); Salicylate Less than 8.0 mg/dL (Less than 8.0)
[2024-04-21 22:19] LABS: Amphetamine Not Detected (NotDetected); Barbiturates Screen Not Detected (NotDetected); Benzodiazepine Screen Detected (NotDetected); Cocaine Metabolite Screen Not Detected (NotDetected); Methadone Not Detected (NotDetected); Methamphetamine Not Detected (NotDetected); Opiate Screen Not Detected (NotDetected); Oxycodone Screen Not Detected (NotDetected); Phencyclidine (PCP) Not Detected (NotDetected); THC/Cannabinoid Screen Detected (NotDetected); Tricyclic Screen Not Detected (NotDetected)
[2024-04-21] MEDS ORDERED: Lorazepam 2 MG/ML VIAL SLOW IVP PRN ×2 (23:06→23:45)
[2024-04-21] MEDS ORDERED: traMADol HCl 50 MG TAB PO PRN (23:09)
[2024-04-21] MEDS ORDERED: Bisacodyl 5 MG TAB PO PRN (23:09)
[2024-04-21] MEDS ORDERED: Ondansetron PF 4 MG/2 ML Vial IVP PRN (23:09)
[2024-04-21] MEDS ORDERED: Ketorolac Tromethamine 30 MG (1 mL) VIAL IVP PRN (23:09)
[2024-04-21] MEDS ORDERED: hydrALAZINE 20 MG/ML VIAL SLOW IVP PRN (23:35)
[2024-04-21] MEDS ORDERED: DISCONTINUE PREVIOUS NARCOTIC PAIN MEDICATIONS AND BENZODIAZEPINES FS SCH (23:45)
[2024-04-21] MEDS ORDERED: Morphine 2 MG/ML VIAL SLOW IVP PRN (23:45)
[2024-04-21] MEDS ORDERED: Propofol BOLUS 1,000 MG/100 ML VIAL IV PRN (23:45)
[2024-04-21] MEDS ORDERED: Fentanyl BOLUS 250 ML IVPB PRN (23:45)
[2024-04-21] MEDS ORDERED: Fentanyl CADD 100 ML IV SCH (23:45)
[2024-04-22] MEDS ORDERED: Dextrose 5% in Water 1,000 ML IV PRN (00:25)
[2024-04-22] MEDS ORDERED: Glucagon 1 MG/ML KIT IM PRN (00:25)
[2024-04-22] MEDS ORDERED: Dextrose 50% Abboject 50 ML SYRINGE SLOW IVP PRN (00:25)
[2024-04-22] MEDS ORDERED: Electrolyte Replacement Protocol 1 EACH FS PRN (00:25)
[2024-04-22] MEDS: Ventilator Sedation Protocol 1 EACH FS ONE (00:27)
[2024-04-22] MEDS: Lactated Ringer's 1,000 ML IV SCH (00:28)
[2024-04-22] MEDS: Potassium Chloride 20 MEQ in Premix 1 BAG IVPB SCH (00:36)
[2024-04-22 00:43] VITALS: BMI 24.3
[2024-04-22] MEDS: Propofol 1,000 MG/100 ML VIAL IV PRN (02:29)
[2024-04-22 05:20] LABS: Puncture Site Right Radial artery
[2024-04-22 05:27] LABS: #Basophils 0.03 10x3/uL (0.0-0.2); %Basophils 0.2 % (0.0-1.0); %Eosinophils 0.3 % (0.0-10.0); %Lymphocytes 18.8 % (21.0-51.0); %Monocytes 7.5 % (0.0-10.0); %Neutrophils 72.9 % (42.0-75.0); Hemoglobin 13.4 g/dL (12.0-16.0); Mean Corpuscular HGB CONC 32.7 g/dL (32.0-36.0); Mean Corpuscular Hemoglobin 30.9 pg (27.0-31.0); Mean Corpuscular Volume 94.5 fL (78.0-98.0); Mean Platelet Volume 10.7 fL (7.4-10.4); Platelet Count 175 10x3/uL (130-400); RBC Distribution Width 12.3 % (11.5-14.5); Red Blood Cell (RBC) Count 4.34 mill/uL (4.20-5.40)
[2024-04-22 05:47] LABS: ALT (SGPT) 15 U/L (8-55); AST (SGOT) 20 U/L (5-34); Albumin 3.4 g/dL (3.4-4.8); Alkaline Phosphatase 72 U/L (40-110); Anion Gap 12 mmol/L (10-20); BUN (Urea Nitrogen) 10 mg/dL (9.8-20.1); Bilirubin, Total 0.4 mg/dL (0.2-1.2); Calc. Creatinine Clearance 85 mL/min (70-130); Calcium 8.4 mg/dL (7.8-10.44); Carbon Dioxide 18 mmol/L (23-31); Chloride 111 mmol/L (98-107); Estimated GFR 91; Globulin 2.7 g/dL (2.4-3.5); Glucose 110 mg/dL (80-115); Protein, Total 6.1 g/dL (5.8-8.1); Sodium 136 mmol/L (136-145)
[2024-04-22] MEDS: Pantoprazole 40 MG VIAL IVP SCH (08:02)
[2024-04-22] MEDS: Enoxaparin 40 MG (0.4 mL) SYRINGE SC SCH (08:02)
[2024-04-22] MEDS: OXcarbazepine 150 MG TAB PO SCH (08:03)
[2024-04-22] MEDS: DULoxetine 30 MG CAP PO SCH (08:03)
[2024-04-22] MEDS: Escitalopram Oxalate 10 mg Tablet PO SCH (08:03)
[2024-04-22] MEDS: Topiramate 25 MG TAB PO SCH (08:03)
[2024-04-22] MEDS ORDERED: Prazosin HCl 1 MG CAP PO SCH (09:00)
[2024-04-22] MEDS ORDERED: Famotidine 20 MG TAB PO SCH (09:00)
[2024-04-22] MEDS ORDERED: Famotidine/PF 20 mg/2ml Vial SLOW IVP SCH (09:00)
[2024-04-22] MEDS ORDERED: levETIRAcetam 500 MG (5 mL) VIAL SLOW IVP SCH (09:00)
[2024-04-22] MEDS ORDERED: DC Sedation Protocol FS PRN (10:56)
[2024-04-22] MEDS: Lisinopril 20 MG TAB PO SCH (14:53)
[2024-04-23 04:28] LABS: #Basophils 0.04 10x3/uL (0.0-0.2); %Basophils 0.6 % (0.0-1.0); %Eosinophils 1.9 % (0.0-10.0); %Lymphocytes 34.3 % (21.0-51.0); %Monocytes 6.2 % (0.0-10.0); %Neutrophils 56.7 % (42.0-75.0); Hematocrit 36.4 % (36.0-47.0); Mean Corpuscular Hemoglobin 30.7 pg (27.0-31.0); Mean Corpuscular Volume 93.1 fL (78.0-98.0); Platelet Count 152 10x3/uL (130-400); RBC Distribution Width 12.2 % (11.5-14.5); Red Blood Cell (RBC) Count 3.91 mill/uL (4.20-5.40)
[2024-04-23 04:47] LABS: Anion Gap 14 mmol/L (10-20); BUN (Urea Nitrogen) 10 mg/dL (9.8-20.1); Calc. Creatinine Clearance 83 mL/min (70-130); Calcium 8.6 mg/dL (7.8-10.44); Carbon Dioxide 20 mmol/L (23-31); Chloride 107 mmol/L (98-107); Estimated GFR 88; Glucose 82 mg/dL (80-115); Potassium 3.6 mmol/L (3.5-5.1); Sodium 137 mmol/L (136-145)
[2024-04-23] MEDS: Lactated Ringer's 500 ML IV SCH (05:40)
[2024-04-23] MEDS ORDERED: D5 1/2 NS w/10 mEq KCl 1,000 ML/1,000 ML BAG IV SCH (05:45)
[2024-04-23] MEDS ORDERED: Electrolyte Replacement Protocol FS PRN (07:15)
[2024-04-23] MEDS: Magnesium 2 GM/50 ML(in water) 2 GM in Premix 1 BAG IVPB SCH (07:32)
[2024-04-23] MEDS: Potassium Chloride 10 MEQ in Dextrose 5 %-0.45 % NaCl 1,000 ML IV SCH (09:56)
[2024-04-23] MEDS: Acetaminophen 325 MG TAB PO PRN (11:12)
[2024-04-23] MEDS: levETIRAcetam 500 MG (5 mL) VIAL SLOW IVP SCH (19:46)
[2024-04-23] MEDS: Ketorolac Tromethamine 30 MG (1 mL) VIAL IVP SCH (21:05)
[2024-04-24 04:47] LABS: #Basophils 0.03 10x3/uL (0.0-0.2); %Basophils 0.5 % (0.0-1.0); %Eosinophils 3.2 % (0.0-10.0); %Lymphocytes 31.5 % (21.0-51.0); %Monocytes 6.6 % (0.0-10.0); %Neutrophils 57.9 % (42.0-75.0); Hematocrit 35.6 % (36.0-47.0); Mean Corpuscular HGB CONC 33.7 g/dL (32.0-36.0); Mean Corpuscular Hemoglobin 30.4 pg (27.0-31.0); Mean Corpuscular Volume 90.1 fL (78.0-98.0); Mean Platelet Volume 11.5 fL (7.4-10.4); Platelet Count 146 10x3/uL (130-400); RBC Distribution Width 11.9 % (11.5-14.5); Red Blood Cell (RBC) Count 3.95 mill/uL (4.20-5.40)
[2024-04-24 04:59] LABS: Anion Gap 12 mmol/L (10-20); BUN (Urea Nitrogen) 11 mg/dL (9.8-20.1); Calc. Creatinine Clearance 78 mL/min (70-130); Calcium 8.5 mg/dL (7.8-10.44); Carbon Dioxide 22 mmol/L (23-31); Chloride 109 mmol/L (98-107); Estimated GFR 81; Glucose 86 mg/dL (80-115); Magnesium 2.3 mg/dL (1.6-2.6); Potassium 3.7 mmol/L (3.5-5.1); Sodium 139 mmol/L (136-145)
[2024-04-24] MEDS: clonazePAM 0.5 MG TAB PO PRN (10:03)
[2024-04-24] MEDS: Ondansetron ODT 4 MG TAB PO PRN (15:11)
[2024-04-24] MEDS: Methocarbamol 500 MG TAB PO PRN (16:56)
[2024-04-24] MEDS: Ibuprofen 800 MG TAB PO SCH (16:56)
[2024-04-25] MEDS ORDERED: KCL ONE ×2 (02:11→13:11)
[2024-04-25] MEDS ORDERED: 1/2 NS W ONE ×2 (02:11→13:11)
[2024-04-25] MEDS ORDERED: D5 ONE ×2 (02:11→13:11)
[2024-04-25] MEDS ORDERED: Enoxaparin 40 MG (0.4 mL) SYRINGE ONE (09:11)
[2024-04-25] MEDS ORDERED: DULoxetine 30 MG CAP ONE (09:11)
[2024-04-25] MEDS ORDERED: Escitalopram Oxalate 10 mg Tablet ONE (09:11)
[2024-04-25] MEDS ORDERED: Pantoprazole 40 MG VIAL ONE (09:11)
[2024-04-25] MEDS ORDERED: Lisinopril 5 MG TAB ONE (09:11)
[2024-04-25] MEDS ORDERED: Topiramate 25 MG TAB ONE ×2 (09:11→22:05)
[2024-04-25] MEDS ORDERED: OXcarbazepine 150 MG TAB ONE (09:11)
[2024-04-25] MEDS ORDERED: diphenhydrAMINE 50 MG CAP ONE (13:11)
[2024-04-25] MEDS ORDERED: clonazePAM 0.5 MG TAB ONE (14:59)
[2024-04-25] MEDS ORDERED: Methocarbamol 500 MG TAB ONE (16:30)
[2024-04-26] MEDS ORDERED: Lisinopril 5 MG TAB ONE (09:14)
[2024-04-26] MEDS ORDERED: Ondansetron ODT 4 MG TAB ONE (10:02)
[2024-04-26] MEDS ORDERED: DULoxetine 30 MG CAP ONE (10:02)
[2024-04-26] MEDS ORDERED: Escitalopram Oxalate 10 mg Tablet ONE (10:02)
[2024-04-26] MEDS ORDERED: Pantoprazole 40 MG VIAL ONE (10:02)
[2024-04-26] MEDS ORDERED: OXcarbazepine 150 MG TAB ONE (10:02)
[2024-04-26] MEDS ORDERED: Topiramate 25 MG TAB ONE ×2 (10:02→21:21)
[2024-04-26] MEDS ORDERED: clonazePAM 0.5 MG TAB ONE (10:02)
[2024-04-26] MEDS ORDERED: Potassium Chloride 10 MEQ/100 ML PREMIX BAG ONE ×2 (11:39→23:30)
[2024-04-26] MEDS ORDERED: Methocarbamol 500 MG TAB ONE (18:02)
[2024-04-27 04:30] LABS: #Basophils 0.04 10x3/uL (0.0-0.2); %Basophils 0.6 % (0.0-1.0); %Eosinophils 4.1 % (0.0-10.0); %Lymphocytes 31.6 % (21.0-51.0); %Monocytes 7.2 % (0.0-10.0); Hematocrit 36.6 % (36.0-47.0); Hemoglobin 12.2 g/dL (12.0-16.0); Mean Corpuscular HGB CONC 33.3 g/dL (32.0-36.0); Mean Corpuscular Hemoglobin 30.6 pg (27.0-31.0); Mean Corpuscular Volume 91.7 fL (78.0-98.0); Mean Platelet Volume 10.8 fL (7.4-10.4); Platelet Count 168 10x3/uL (130-400); RBC Distribution Width 11.8 % (11.5-14.5); Red Blood Cell (RBC) Count 3.99 mill/uL (4.20-5.40)
[2024-04-27 05:04] LABS: Anion Gap 10 mmol/L (10-20); BUN (Urea Nitrogen) 6 mg/dL (9.8-20.1); Calc. Creatinine Clearance 63 mL/min (70-130); Calcium 8.8 mg/dL (7.8-10.44); Carbon Dioxide 23 mmol/L (23-31); Chloride 108 mmol/L (98-107); Estimated GFR 62; Glucose 98 mg/dL (80-115); Magnesium 2.1 mg/dL (1.6-2.6); Sodium 137 mmol/L (136-145)
[2024-04-27] MEDS: Lisinopril 5 MG TAB ONE (09:00)
[2024-04-27 12:15] VITALS: TEMP 98.5
[2024-04-27 14:26] VITALS: BMI 24.6
[2024-04-27] MEDS: Hydrocortisone 1% Cream 30 GM TUBE TOP SCH (14:39)
[2024-04-27 14:40] VITALS: BP 143/83
[2024-04-28] MEDS ORDERED: Pantoprazole DR 40 MG TAB PO SCH (09:00)
[2024-04-28 11:06] LABS: Campy jejuni + coli by PCR Negative (Negative); STEC Shiga Toxin 1+2 Negative (Negative); Salmonella spp. by PCR Negative (Negative); Shigella spp + EIEC by PCR Negative (Negative)
[2024-05-03 18:30] LABS: Anion Gap 9 mmol/L (10-20); BUN (Urea Nitrogen) 7 mg/dL (9.8-20.1); Calc. Creatinine Clearance 69 mL/min (70-130); Calcium 8.4 mg/dL (7.6-10.4); Carbon Dioxide 23 mmol/L (23-31); Chloride 111 mmol/L (98-107); Estimated GFR 69; Glucose 104 mg/dL (80-115); Magnesium 2.1 mg/dL (1.6-2.6); Potassium 3.9 mmol/L (3.5-5.1); Sodium 139 mmol/L (136-145)
[2024-05-03 18:31] LABS: %Basophils 0.5 % (0.0-1.0); %Eosinophils 4.3 % (0.0-10.0); %Lymphocytes 35.4 % (21.0-51.0); %Monocytes 6.6 % (0.0-10.0); %Neutrophils 52.9 % (42.0-75.0); Hematocrit 34.5 % (36.0-47.0); Hemoglobin 11.4 g/dL (12.0-16.0); Mean Corpuscular Hemoglobin 30.8 pg (27.0-31.0); Mean Corpuscular Volume 93.2 fL (78.0-98.0); Mean Platelet Volume 11.4 fL (7.4-10.4); Platelet Count 161 10x3/uL (130-400); RBC Distribution Width 11.9 % (11.5-14.5)
[2024-05-03 18:32] LABS: #Basophils 0.03 10x3/uL (0.0-0.2)
== END 2024-04-27 15:45 | disposition home or self-care (01) | DRG 880 ==
LOC: ERS 21:02 → CCU 23:13 → 2SE 04-23 10:55
PROVIDERS: ADMIT Internal Medicine; ATTEND Internal Medicine
PROC: XX20X89 Monitoring of Brain Electrical Activity, Computer-aided Detection and Notification, New Technology Group 9 (ICD-10-PCS; principal; 2024-04-21)
PROC: 5A1935Z Respiratory Ventilation, Less than 24 Consecutive Hours (ICD-10-PCS; 2024-04-21)
PROC: 4A133R1 Monitoring of Arterial Saturation, Peripheral, Percutaneous Approach (ICD-10-PCS; 2024-04-21)
PROC: XX20X89 Monitoring of Brain Electrical Activity, Computer-aided Detection and Notification, New Technology Group 9 (ICD-10-PCS; 2024-04-22)
DX: F44.5 Conversion disorder with seizures or convulsions (principal); G93.41 Metabolic encephalopathy; J96.01 Acute respiratory failure with hypoxia; F33.1 Major depressive disorder, recurrent, moderate; I69.351 Hemiplegia and hemiparesis following cerebral infarction affecting right dominant side; I10 Essential (primary) hypertension; F41.9 Anxiety disorder, unspecified; G43.909 Migraine, unspecified, not intractable, without status migrainosus; G89.29 Other chronic pain; M54.9 Dorsalgia, unspecified; K21.9 Gastro-esophageal reflux disease without esophagitis; F17.210 Nicotine dependence, cigarettes, uncomplicated; I48.0 Paroxysmal atrial fibrillation; F12.90 Cannabis use, unspecified, uncomplicated; I25.2 Old myocardial infarction
CPT/HCPCS: 36415; 36416; 36600; 51702; 70450; 70553; 71045; 80048; 80053; 80177; 80306; 80307; 82805; 83605; 83735; 84146; 84443; 85025; 87324; 87449; 87505; 93005; 94002; 94003; 94760; 95705; 96365; 96366; 99292; J1650; J1885; J1953; J2470; J2704; J3475; J3480; J7042; J7120; Q0162